=== PATIENT | male | born 1980 | race African-American/Black ===

== ENCOUNTER 2017-08-23 00:50 | Emergency (ER) | payer SELFPAY ==
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
[2017-08-23 01:06] VITALS: BP 129/91; PULSE 120; TEMP 99.2; BMI 55.3
[2017-08-23] MEDS ORDERED: IBUPROFEN 100 MG/5 ML UNIT DOSE CUPS ONE (01:26)
[2017-08-23] MEDS ORDERED: BACITRACIN/POLYMYXIN B SULFATE 15 GM TUBE TP SCH (10:00)
== END 2017-08-23 01:39 | disposition home or self-care (01) ==
LOC: JER 00:50
DX: S09.8XXA Other specified injuries of head, initial encounter (principal); Y04.2XXA Assault by strike against or bumped into by another person, initial encounter; Y93.89 Activity, other specified; Y92.414 Local residential or business street as the place of occurrence of the external cause; Y99.8 Other external cause status; Y07.9 Unspecified perpetrator of maltreatment and neglect
CPT/HCPCS: 99281-25